=== PATIENT | female | born 1950 | race Caucasian/White ===

== ENCOUNTER 2017-10-12 10:38 | Outpatient (CLI) | payer MEDICARE | END 2017-10-12 10:39 | disposition home or self-care (01) | LOC: BICMAMMO 10:38 | PROVIDERS: ATTEND Obstetrics & Gynecology | DX: R92.8 Other abnormal and inconclusive findings on diagnostic imaging of breast (principal) | CPT/HCPCS: 76642; 77066; G0279 ==

== ENCOUNTER 2017-10-12 11:59 | Outpatient (CLI) | payer MEDICARE | END 2017-10-12 12:00 | disposition home or self-care (01) | LOC: BICRAD 11:59 | PROVIDERS: ATTEND Obstetrics & Gynecology | DX: F17.200 Nicotine dependence, unspecified, uncomplicated (principal); J98.4 Other disorders of lung | CPT/HCPCS: 71046 ==

== ENCOUNTER 2019-10-06 11:07 | Outpatient (CLI) | payer MEDICARE ==
--- NOTE | 2019-10-06 11:36 | MMO ---
Bilateral MAMMO Bilat Screen [facility]. CLINICAL HISTORY: Patient is 69 years old and is seen for screening. The patient has the following family history of breast cancer: mother, at age 55. The patient has a history of cervical cancer. VIEWS: The views performed were: bilateral craniocaudal with tomosynthesis and bilateral mediolateral oblique with tomosynthesis. FILMS COMPARED: The present examination has been compared to prior imaging studies performed at [facility] on 10/12/2017, at [facility] on 04/18/2015 and 11/10/2016, and at [facility] on 10/22/2015. This study has been interpreted with the assistance of computer-aided detection. MAMMOGRAM FINDINGS: There are scattered fibroglandular densities. There are stable benign appearing calcifications seen in both breasts. Nodularity is stable. There are no suspicious masses, suspicious calcifications, or new areas of architectural distortion. IMPRESSION: THERE IS NO MAMMOGRAPHIC EVIDENCE OF MALIGNANCY. A ROUTINE FOLLOW-UP MAMMOGRAM IN 1 YEAR IS RECOMMENDED. THE RESULTS OF THIS EXAM WERE SENT TO THE PATIENT. ACR BI-RADS Category 2 - Benign finding MAMMOGRAPHY NOTE: 1. A negative mammogram report should not delay a biopsy if a dominant of clinically suspicious mass is present. 2. Approximately 10% to 15% of breast cancers are not detected by mammography. 3. Adenosis and dense breasts may obscure an underlying neoplasm. Reported by: UAVLDO YODER MD Electonically Signed: [id number]
--- NOTE | 2019-10-06 14:16 | CT ---
CT PULMONARY LUNG SCAN PERFORMED WITHOUT CONTRAST ENHANCEMENT: 10/06/19 HISTORY: Current smoker with a 55 year one to two pack smoking history. The lungs are clear of any infiltrative process. There are no bronchiectatic lung changes seen. No ev idence of any interstitial fibrotic lung change. No pulmonary nodules. No pleural effusions. Some moderate coronary calcifications are present. Fairly dense atherosclerotic change in the aortic arch. The visualized liver parenchyma shows no focal findings. Low attenuation right adrenal lesion is inco mpletely visualized on this exam. CT Hounsfield unit numbers would suggest this would be most likely an adenoma. IMPRESSION: 1. Lung RADS category 1 - negative. Annual follow-up is recommended. 2. Lung RADS category S - this additional category is given for the presence of coronary artery calcifications and incompletely characterized right adrenal lesion which is felt most likely to be an adenoma. POS: [facility]
== END 2019-10-06 11:08 | disposition home or self-care (01) ==
LOC: BICMAMMO 11:07 → CT 11:08
PROVIDERS: ATTEND Nurse Practitioner Adult Health
DX: Z12.31 Encounter for screening mammogram for malignant neoplasm of breast (principal); Z12.2 Encounter for screening for malignant neoplasm of respiratory organs; F17.210 Nicotine dependence, cigarettes, uncomplicated; I25.10 Atherosclerotic heart disease of native coronary artery without angina pectoris; E27.8 Other specified disorders of adrenal gland; Z85.41 Personal history of malignant neoplasm of cervix uteri; Z80.3 Family history of malignant neoplasm of breast
CPT/HCPCS: 77063; 77067; G0297

== ENCOUNTER 2021-08-27 09:59 | Outpatient (CLI) | payer MEDICARE | END 2021-08-27 10:00 | disposition home or self-care (01) | LOC: CT 09:59 | PROVIDERS: ATTEND Internal Medicine Cardiovascular Disease | DX: I73.9 Peripheral vascular disease, unspecified (principal); I10 Essential (primary) hypertension; I71.4 Abdominal aortic aneurysm, without rupture; I70.201 Unspecified atherosclerosis of native arteries of extremities, right leg; I70.8 Atherosclerosis of other arteries; E27.8 Other specified disorders of adrenal gland | CPT/HCPCS: 75635; 82565 ==

== ENCOUNTER 2021-10-19 14:21 | Inpatient (IN) | payer MEDICARE ==
[2021-10-19 18:02] VITALS: BMI 25.9
[2021-10-19] MEDS ORDERED: Acetaminophen 325 MG TAB PO PRN (18:35)
[2021-10-19] MEDS ORDERED: Bisacodyl 5 MG TAB PO PRN (18:35)
[2021-10-19] MEDS: cefTRIAXone\\ROCEPHIN 1 GM in Sodium Chloride 0.9% 100 ML IVPB SCH (21:00)
[2021-10-19] MEDS: hydrALAZINE 25 MG TAB PO SCH (21:00)
[2021-10-19] MEDS: Azithromycin 500 MG in Sodium Chloride 0.9% 250 ML 250 ML IVPB SCH (21:00)
[2021-10-19] MEDS: Nicotine 21 MG PATCH TD SCH (21:00)
[2021-10-19] MEDS: Atorvastatin Calcium 20 MG TAB PO SCH (21:03)
[2021-10-19] MEDS: methylPREDNISolone Sod Succ 40 MG VIAL IVP SCH (23:20)
[2021-10-20] MEDS: methylPREDNISolone Sod Succ 40 MG VIAL IVP SCH ×3 (05:10→18:14)
[2021-10-20 06:35] LABS: #Lymphocytes 1.1 thou/uL (1.20-3.40); #Monocytes 0.1 thou/uL (0.11-0.59); #Neutrophils 12.9 thou/uL (1.40-6.50); %Basophils 0.1 % (0.0-1.0); %Eosinophils 0.3 % (0.0-10.0); %Lymphocytes 7.4 % (21.0-51.0); %Monocytes 0.7 % (0.0-10.0); %Neutrophils 91.6 % (42.0-75.0); Hemoglobin 14.8 g/dL (12.0-16.0); Mean Corpuscular Hemoglobin 29.3 pg (27.0-31.0); Mean Corpuscular Volume 94.5 fL (78.0-98.0); Mean Platelet Volume 7.7 fL (7.4-10.4); Platelet Count 208 thou/uL (130-400); RBC Distribution Width 12.3 % (11.5-14.5); Red Blood Cell (RBC) Count 5.06 mill/uL (4.20-5.40); White Blood Cell (WBC) Count 14.1 thou/uL (4.8-10.8)
[2021-10-20 06:51] LABS: Anion Gap 12 mmol/L (10-20); BUN (Urea Nitrogen) 25 mg/dL (9.8-20.1); Calc. Creatinine Clearance 56 mL/min (70-130); Calcium 8.9 mg/dL (7.8-10.44); Carbon Dioxide 28 mmol/L (23-31); Chloride 104 mmol/L (98-107); Glucose 125 mg/dL (83-110); Sodium 140 mmol/L (136-145)
[2021-10-20] MEDS ORDERED: cloNIDine 0.2mg/24 Hour PATCH TD SCH (09:00)
[2021-10-20] MEDS: Amlodipine 5 MG TAB PO SCH (09:22)
[2021-10-20] MEDS: hydrALAZINE 25 MG TAB PO SCH ×2 (09:22→20:30)
[2021-10-20] MEDS: Enoxaparin Sodium 40 MG/0.4 ML SYRINGE SC SCH (09:22)
[2021-10-20] MEDS: Aspirin Chewable 81 MG TAB PO SCH (09:22)
[2021-10-20] MEDS: cefTRIAXone\\ROCEPHIN 1 GM in Sodium Chloride 0.9% 100 ML IVPB SCH (20:30)
[2021-10-20] MEDS: Atorvastatin Calcium 20 MG TAB PO SCH (20:30)
[2021-10-20] MEDS: Nicotine 21 MG PATCH TD SCH (20:30)
[2021-10-20] MEDS: Azithromycin 500 MG in Sodium Chloride 0.9% 250 ML 250 ML IVPB SCH (21:15)
[2021-10-21] MEDS: methylPREDNISolone Sod Succ 40 MG VIAL IVP SCH ×3 (01:40→11:42)
[2021-10-21] MEDS: Amlodipine 5 MG TAB PO SCH (07:52)
[2021-10-21] MEDS: Enoxaparin Sodium 40 MG/0.4 ML SYRINGE SC SCH (07:52)
[2021-10-21] MEDS: hydrALAZINE 25 MG TAB PO SCH (07:52)
[2021-10-21] MEDS: Aspirin Chewable 81 MG TAB PO SCH (07:53)
[2021-10-21 09:07] VITALS: BP 143/79; TEMP 98
== END 2021-10-21 15:24 | disposition home or self-care (01) | DRG 189 ==
LOC: T4-A 14:21
PROVIDERS: ADMIT Internal Medicine; ATTEND Internal Medicine
DX: J96.01 Acute respiratory failure with hypoxia (principal); J44.1 Chronic obstructive pulmonary disease with (acute) exacerbation; Z20.822 Contact with and (suspected) exposure to COVID-19; F17.210 Nicotine dependence, cigarettes, uncomplicated; E78.5 Hyperlipidemia, unspecified; Z96.641 Presence of right artificial hip joint; Z79.899 Other long term (current) drug therapy; Z79.82 Long term (current) use of aspirin; Z79.52 Long term (current) use of systemic steroids; Z88.8 Allergy status to other drugs, medicaments and biological substances; Z91.09 Other allergy status, other than to drugs and biological substances; Z90.710 Acquired absence of both cervix and uterus; Z71.6 Tobacco abuse counseling
CPT/HCPCS: 36415; 80048; 85025; 94640; J0456; J0696; J1650; J2920; J3490; J7050; J7620

== ENCOUNTER 2023-07-27 14:09 | Outpatient (CLI) | payer MEDICARE ==
[2023-07-27] MEDS ORDERED: Iopamidol-370 76% 500 ML MDV (1 ML CHARGE) ONE (14:32)
== END 2023-07-27 14:10 | disposition home or self-care (01) ==
LOC: BICCT 14:09
PROVIDERS: ATTEND Thoracic Surgery (Cardiothoracic Vascular Surgery)
DX: I71.40 Abdominal aortic aneurysm, without rupture, unspecified (principal); I70.1 Atherosclerosis of renal artery; I70.201 Unspecified atherosclerosis of native arteries of extremities, right leg
CPT/HCPCS: 75635; 82565; Q9967

== ENCOUNTER 2025-06-07 20:05 | Inpatient (IN) | payer OTHER ==
[2025-06-07 20:40] LABS: Actual Bicarbonate (HCO3v) 31.3 mEq/L (22-28); Analyzer IN Cardio ER; Base Excess 2.3 mEq/L (-2.0 to +3.0); Calcium, Ionized (venous) 1.11 mmol/L (1.16-1.32); Chloride (VBG) 100 mmol/L (98-106); Hematocrit-VBG 39 % (36.0-47.0); Hemoglobin (Hb) 13.3 g/dL (11.7-16.1); Potassium (VBG) 4.04 mmol/L (3.70-5.30); Sodium 140 mmol/L (133-146)
[2025-06-07 21:48] LABS: ALT (SGPT) 11 U/L (Less than 34); AST (SGOT) 17 U/L (11-34); Albumin 2.6 g/dL (3.1-4.5); Alkaline Phosphatase 71 U/L (40-110); Anion Gap 17 mmol/L (10-20); BUN (Urea Nitrogen) 49 mg/dL (9.8-20.1); Bilirubin, Total 0.7 mg/dL (0.3-1.2); Calc. Creatinine Clearance 0 mL/min (70-130); Calcium 9.1 mg/dL (7.8-10.44); Carbon Dioxide 30 mmol/L (23-31); Chloride 100 mmol/L (98-107); Globulin 3.8 g/dL (2.4-3.5); Glucose 149 mg/dL (83-110); Potassium 4.1 mmol/L (3.5-5.1); Sodium 143 mmol/L (136-145)
[2025-06-07 21:58] LABS: #Basophils 0.05 10x3/uL (0.0-0.2); #Eosinophils 0.09 10x3/uL (0.0-0.7); #Monocytes 1.07 10x3/uL (0.11-0.59); #Neutrophils 16.81 10x3/uL (1.40-6.50); %Basophils 0.3 % (0.0-1.0); %Eosinophils 0.5 % (0.0-10.0); %Lymphocytes 3.3 % (21.0-51.0); %Monocytes 5.7 % (0.0-10.0); %Neutrophils 89.7 % (42.0-75.0); Hematocrit 40.4 % (36.0-47.0); Hemoglobin 12.6 g/dL (12.0-16.0); Mean Corpuscular Hemoglobin 29.4 pg (27.0-31.0); Mean Corpuscular Volume 94.4 fL (78.0-98.0); Platelet Count 213 10x3/uL (130-400); Red Blood Cell (RBC) Count 4.28 mill/uL (4.20-5.40); White Blood Cell (WBC) Count 18.74 10x3/uL (4.8-10.8)
[2025-06-07 23:04] VITALS: BMI 21.9
[2025-06-07] MEDS ORDERED: Ondansetron PF 4 MG/2 ML Vial IVP PRN (23:12)
[2025-06-07] MEDS ORDERED: Acetaminophen 325 MG TAB PO PRN (23:12)
[2025-06-08 02:15] LABS: Actual Bicarbonate (HCO3v) 25.9 mEq/L (22-28); Base Excess -0.2 mEq/L (-2.0 to +3.0); Calcium, Ionized (venous) 1.08 mmol/L (1.16-1.32); Chloride (VBG) 103 mmol/L (98-106); Hematocrit-VBG 36 % (36.0-47.0); Hemoglobin (Hb) 12.3 g/dL (11.7-16.1); Potassium (VBG) 3.88 mmol/L (3.70-5.30); Sodium 140 mmol/L (133-146)
[2025-06-08 02:29] LABS: #Basophils 0.04 10x3/uL (0.0-0.2); #Eosinophils 0.08 10x3/uL (0.0-0.7); #Monocytes 0.90 10x3/uL (0.11-0.59); #Neutrophils 18.16 10x3/uL (1.40-6.50); %Basophils 0.2 % (0.0-1.0); %Eosinophils 0.4 % (0.0-10.0); %Lymphocytes 4.1 % (21.0-51.0); %Monocytes 4.5 % (0.0-10.0); %Neutrophils 90.1 % (42.0-75.0); Hematocrit 38.1 % (36.0-47.0); Hemoglobin 11.7 g/dL (12.0-16.0); Mean Corpuscular Hemoglobin 29.4 pg (27.0-31.0); Mean Corpuscular Volume 95.7 fL (78.0-98.0); Platelet Count 201 10x3/uL (130-400); Red Blood Cell (RBC) Count 3.98 mill/uL (4.20-5.40); White Blood Cell (WBC) Count 20.15 10x3/uL (4.8-10.8)
[2025-06-08 02:46] LABS: ALT (SGPT) 8 U/L (Less than 34); AST (SGOT) 16 U/L (11-34); Albumin 2.4 g/dL (3.1-4.5); Alkaline Phosphatase 67 U/L (40-110); Anion Gap 16 mmol/L (10-20); BUN (Urea Nitrogen) 43 mg/dL (9.8-20.1); Bilirubin, Total 0.6 mg/dL (0.3-1.2); Calc. Creatinine Clearance 32 mL/min (70-130); Calcium 8.8 mg/dL (7.8-10.44); Carbon Dioxide 26 mmol/L (23-31); Chloride 103 mmol/L (98-107); Globulin 3.5 g/dL (2.4-3.5); Glucose 179 mg/dL (83-110); Potassium 3.9 mmol/L (3.5-5.1); Sodium 141 mmol/L (136-145)
[2025-06-08] MEDS: Furosemide 40 MG (4 mL) VIAL SLOW IVP SCH (07:59)
[2025-06-08] MEDS: Enoxaparin 30 MG (0.3 mL) SYRINGE SC SCH (07:59)
[2025-06-08] MEDS: Famotidine/PF 20 mg/2ml Vial SLOW IVP SCH (07:59)
[2025-06-08 12:52] VITALS: BMI 21.9
[2025-06-08] MEDS: Azithromycin 500 MG in Sodium Chloride 0.9% 250 ML 250 ML IVPB SCH (15:06)
[2025-06-08] MEDS: cefTRIAXone\\ROCEPHIN 2 GM in Sodium Chloride 0.9% 100 ML IVPB SCH (16:31)
[2025-06-09 03:53] LABS: #Basophils 0.04 10x3/uL (0.0-0.2); #Eosinophils 0.03 10x3/uL (0.0-0.7); #Monocytes 0.51 10x3/uL (0.11-0.59); #Neutrophils 17.54 10x3/uL (1.40-6.50); %Basophils 0.2 % (0.0-1.0); %Eosinophils 0.2 % (0.0-10.0); %Lymphocytes 3.7 % (21.0-51.0); %Monocytes 2.7 % (0.0-10.0); %Neutrophils 92.0 % (42.0-75.0); Hematocrit 37.8 % (36.0-47.0); Hemoglobin 11.6 g/dL (12.0-16.0); Mean Corpuscular Hemoglobin 28.9 pg (27.0-31.0); Mean Corpuscular Volume 94.3 fL (78.0-98.0); Platelet Count 239 10x3/uL (130-400); Red Blood Cell (RBC) Count 4.01 mill/uL (4.20-5.40); White Blood Cell (WBC) Count 19.05 10x3/uL (4.8-10.8)
[2025-06-09 04:15] LABS: Anion Gap 13 mmol/L (10-20); BUN (Urea Nitrogen) 45 mg/dL (9.8-20.1); Calc. Creatinine Clearance 39 mL/min (70-130); Calcium 9.3 mg/dL (7.8-10.44); Carbon Dioxide 30 mmol/L (23-31); Chloride 103 mmol/L (98-107); Glucose 130 mg/dL (83-110); Potassium 3.7 mmol/L (3.5-5.1); Sodium 142 mmol/L (136-145)
[2025-06-09] MEDS: Enoxaparin 40 MG (0.4 mL) SYRINGE SC SCH (09:19)
[2025-06-09] MEDS: Famotidine/PF 20 mg/2ml Vial SLOW IVP SCH (09:19)
[2025-06-09] MEDS: Cholecalciferol 1,000 UNITS (25 MCG) TAB PO SCH (09:20)
[2025-06-09] MEDS: Aspirin Chewable 81 MG TAB PO SCH (09:20)
[2025-06-09] MEDS: Carvedilol 6.25 MG TAB PO SCH (09:20)
[2025-06-09] MEDS: Mupirocin 1 GM TUBE NASAL DECOLONIZATION NASAL SCH (21:00)
[2025-06-09] MEDS: cloNIDine 0.1 MG TAB PO SCH (21:02)
[2025-06-10 05:50] LABS: Hematocrit 37.8 % (36.0-47.0); Hemoglobin 11.9 g/dL (12.0-16.0); Mean Corpuscular Hemoglobin 29.0 pg (27.0-31.0); Mean Corpuscular Volume 92.2 fL (78.0-98.0); Platelet Count 252 10x3/uL (130-400); Red Blood Cell (RBC) Count 4.10 mill/uL (4.20-5.40); White Blood Cell (WBC) Count 16.21 10x3/uL (4.8-10.8)
[2025-06-10 06:06] LABS: Anion Gap 12 mmol/L (10-20); BUN (Urea Nitrogen) 51 mg/dL (9.8-20.1); Calc. Creatinine Clearance 35 mL/min (70-130); Calcium 8.9 mg/dL (7.8-10.44); Carbon Dioxide 32 mmol/L (23-31); Chloride 103 mmol/L (98-107); Glucose 155 mg/dL (83-110); Potassium 3.8 mmol/L (3.5-5.1); Sodium 143 mmol/L (136-145)
[2025-06-10] MEDS: Furosemide 40 MG TAB PO SCH (09:26)
[2025-06-10] MEDS: Spironolactone 25 MG TAB PO SCH (09:27)
[2025-06-11] MEDS ORDERED: Benzonatate 100 MG CAP PO PRN (14:13)
[2025-06-12 08:20] VITALS: TEMP 97.8
[2025-06-12 13:13] VITALS: BP 174/72
== END 2025-06-12 13:24 | disposition home or self-care (01) | DRG 193 ==
LOC: ERS 20:05 → ERHOLD 22:42 → IMCU/EMU 06-08 01:11 → OBS 06-09 13:55
PROVIDERS: ADMIT Internal Medicine; ATTEND Internal Medicine
PROC: 3E03329 Introduction of Other Anti-infective into Peripheral Vein, Percutaneous Approach (ICD-10-PCS; principal; 2025-06-07)
PROC: 5A09357 Assistance with Respiratory Ventilation, Less than 24 Consecutive Hours, Continuous Positive Airway Pressure (ICD-10-PCS; 2025-06-07)
DX: J18.9 Pneumonia, unspecified organism (principal); J96.01 Acute respiratory failure with hypoxia; J96.22 Acute and chronic respiratory failure with hypercapnia; I13.0 Hypertensive heart and chronic kidney disease with heart failure and stage 1 through stage 4 chronic kidney disease, or unspecified chronic kidney disease; J44.1 Chronic obstructive pulmonary disease with (acute) exacerbation; I50.32 Chronic diastolic (congestive) heart failure; N17.9 Acute kidney failure, unspecified; N18.30 Chronic kidney disease, stage 3 unspecified; E78.5 Hyperlipidemia, unspecified; I71.40 Abdominal aortic aneurysm, without rupture, unspecified; Z96.641 Presence of right artificial hip joint; E88.09 Other disorders of plasma-protein metabolism, not elsewhere classified; F17.210 Nicotine dependence, cigarettes, uncomplicated; Z99.81 Dependence on supplemental oxygen; Z98.890 Other specified postprocedural states; Z90.710 Acquired absence of both cervix and uterus; Z88.8 Allergy status to other drugs, medicaments and biological substances; Z79.899 Other long term (current) drug therapy; Z79.51 Long term (current) use of inhaled steroids; Z79.82 Long term (current) use of aspirin
CPT/HCPCS: 36415; 80048; 80053; 82805; 85025; 85027; 93306; 94640; 94660; 99285; J0456; J0696; J1308; J1650; J1940; J2919; J7050; J7626